=== PATIENT | female | born 1980 | race Caucasian/White ===

== ENCOUNTER 2017-07-24 20:10 | Emergency (ER) | payer BC ==
[~2017-07-24] VITALS: Ht 170.2 cm; Wt 96.0 kg
[2017-07-24 20:19] VITALS: BP 139/81; PULSE 85; RESP 18; TEMP 98.1; O2SAT 99
[2017-07-24] MEDS ORDERED: [UNRECOGNIZED DRUG - CODE] TOPICAL (20:46)
[2017-07-24] MEDS ORDERED: BACI28.3 TOPICAL (20:46)
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
[2017-07-24] MEDS ORDERED: BACITRACIN/POLYMYXIN B OINT 0.9 GM PACKET TOPICAL ONE (21:00)
== END 2017-07-24 21:08 | disposition home or self-care (01) ==
LOC: PHED 20:10
DX: T21.21XA Burn of second degree of chest wall, initial encounter (principal); T21.12XA Burn of first degree of abdominal wall, initial encounter; Z88.0 Allergy status to penicillin; Z72.0 Tobacco use; X11.8XXA Contact with other hot tap-water, initial encounter
CPT/HCPCS: 16025